=== PATIENT | female | born 1960 | race Caucasian/White ===

== ENCOUNTER 2020-10-22 20:27 | Emergency (ER) | payer MEDICARE, MEDICAID ==
[~2020-10-22] VITALS: Ht 160 cm; Wt 113.4 kg
[2020-10-23 07:26] LABS: Urine Bacteria NONE SEEN /hpf (None Seen); Urine Blood Negative /uL (Negative); Urine Hyaline Cast MOD /lpf (0 - 2); Urine Mucus FEW (None Seen); Urine Specific Gravity 1.034 (1.001-1.035); Urine WBC 9 /hpf (0 - 5)
[2020-10-23 07:41] VITALS: BP 107/64
[2020-10-23 08:31] LABS: Amphetamine Screen, Urine NEGATIVE (NEGATIVE); Barbiturate Scree,Urine NEGATIVE (NEGATIVE); Benzodiazephine Screen, Urine NEGATIVE (NEGATIVE); Cannabinoid Screen, Urine NEGATIVE (NEGATIVE); Cocaine Screen, Urine NEGATIVE (NEGATIVE); Opiate Scree,Urine NEGATIVE (NEGATIVE); Phencyclidine Screen, Urine NEGATIVE (NEGATIVE)
== END 2020-10-23 12:05 | disposition left against medical advice (07) ==
LOC: ER 20:27
DX: K59.00 Constipation, unspecified (principal); I10 Essential (primary) hypertension; Z88.2 Allergy status to sulfonamides
CPT/HCPCS: 80307; 81001; 82962